=== PATIENT | male | born 1940 | race Hispanic/Latino ===

== ENCOUNTER → 2019-09-21 | Day surgery (SDC) | payer MEDICARE ==
[2019-09-15 16:30] LABS: BASOPHILS % 0.5 % (0.0-1.0); EOSINOPHILS # (AUTO) 0.1 (0.0-0.4); HEMATOCRIT 44.3 % (38.2-49.6); HEMOGLOBIN 14.1 g/dL (14.0-18.0); LYMPHOCYTES # (AUTO) 2.5 (1.0-3.2); LYMPHOCYTES % 30.2 % (18.0-39.1); MEAN CORPUSCULAR HEMOGLOBIN 31.3 pg (28-32); MEAN CORPUSCULAR HGB CONC 31.8 g/dL (31-35); MEAN CORPUSCULAR VOLUME 98.4 fL (81-99); MONOCYTES # (AUTO) 0.7 (0.2-0.8); MONOCYTES % 8.1 % (4.4-11.3); NEUTROPHILS # (AUTO) 4.9 (2.1-6.9); PLATELET COUNT 183 x10e3/uL (140-360); RED CELL DISTRIBUTION WIDTH 15.1 % (11.7-14.4)
[~2019-09-21] MED LIST: ASPIR 8181 MG PO; ATORVASTATIN CA20 MG PO; BUPIVACAINE HC 0.75% PF 10ML VIAL INJ ONE; CETIRIZINE HCL10 MG PO; CHONDR SU A NA/HYALUR SOD 1 EACH KIT IO ONE; EPINEPHRINE HCL 1:1000 1ML 1 MG/ML AMP ONE; FINASTERIDE5 MG PO; FUROSEMIDE40 MG PO; GLIMEPIRIDE2 MG PO; LIDOCAINE 2% /EPINEPHRINE 20 ML SDV INJ ONE; LIDOCAINE HCL 2% LOCAL INJ 5 ML SDV VIAL INJ ONE; LIDOCAINE HCL-PF 4% 40 MG/1 ML 5ML AMP ONE; LISINOPRIL2.5 MG PO; METFORMIN HCL500 MG PO; METOPROLOL TART25 MG PO; NIACIN500 M1 PO; OMEPRAZOLE20 M1 PO; PILOCARPINE HCL(OPTH) 15 ML LIQD ONE; POVIDONE IODINE 5% (OPTH) 30 ML BTL ONE; PRAVASTATIN SOD40 MG PO; PROPOFOL IV EMULSION 10 MG/ML 20 ML VIAL ONE; TIZANIDINE HCL4 M1 PO; TOBRAMYCIN/DEXAMETHASONE(OPTH) 3.5 GM TUBE ONE; TRIPHROCAPS SOFT1 MG PO
[2019-09-21] MEDS: CYCLOPENTOLATE HCL 1% OPTH SOLN 2ML BTL ONE (07:14)
[2019-09-21] MEDS: PHENYLEPHRINE HCL 2 ML DROPS ONE (07:14)
[2019-09-21] MEDS: GATIFLOXACIN(OPTH) 5 ML LIQD ONE (07:14)
[2019-09-21 08:34] VITALS: BP 128/74
== END | disposition home or self-care (01) ==
LOC: OR 06:14
PROVIDERS: ATTEND Ophthalmology
DX: H25.11 Age-related nuclear cataract, right eye (principal); E11.9 Type 2 diabetes mellitus without complications; I10 Essential (primary) hypertension; H91.3 Deaf nonspeaking, not elsewhere classified; E78.5 Hyperlipidemia, unspecified; K21.9 Gastro-esophageal reflux disease without esophagitis; F17.210 Nicotine dependence, cigarettes, uncomplicated; Z01.812 Encounter for preprocedural laboratory examination; Z79.82 Long term (current) use of aspirin; Z79.84 Long term (current) use of oral hypoglycemic drugs
CPT/HCPCS: 36415 ×2; 66984; 82948; 85025; J0171; J2001 ×2; J2704; V2632